=== PATIENT | female | born 1935 | race Caucasian/White ===

== ENCOUNTER 2018-08-22 12:31 | Emergency (ER) | payer MEDICARE ==
[~2018-08-22] VITALS: Ht 160 cm; Wt 67.0 kg
--- NOTE | 2018-08-22 12:48 | NUR ---
Pt is resting quietly on gurney, resp even and unlabored, waiting to be evaluated by provider
--- NOTE | 2018-08-22 13:33 | NUR ---
Dr Welsh plans to transfer pt to facility with OB for vaginal bleeding and prolapse, family at bedside is aware of plan
--- NOTE | 2018-08-22 14:04 | NUR ---
pt is sleeping, resp even and unlabored, family at bedside
--- NOTE | 2018-08-22 14:44 | NUR ---
Call placed to [facility] transfer center to check the status of transfer
--- NOTE | 2018-08-22 15:11 | NUR ---
DR LIZAMA INSERTED SANCHEZ CATHETER
--- NOTE | 2018-08-22 15:54 | NUR ---
pt continues to rest quietly, waiting for transport to [facility], emptied barrientos of 200ml of yellow, cloudy urine, family at bedside
[2018-08-22 16:45] VITALS: BP 203/83
--- NOTE | 2018-08-22 16:50 | NUR ---
ATTEMPTED REPORT TO [facility], NURSE SAID ROOM IS NOT CLEAN AND WILL CALL BACK FOR REPORT,
--- NOTE | 2018-08-22 16:57 | NUR ---
DR CORRAL AWARE OF VITAL SIGNS, REPORT GIVEN TO DOROTHY YANEZ AT [facility]
--- NOTE | 2018-08-22 17:00 | NUR ---
REPORT CHEMICAL OPERATOR
== END 2018-08-22 17:05 | disposition short-term general hospital (02) ==
LOC: ER 12:32
DX: R33.9 Retention of urine, unspecified (principal); N81.4 Uterovaginal prolapse, unspecified; N93.8 Other specified abnormal uterine and vaginal bleeding; R10.2 Pelvic and perineal pain
CPT/HCPCS: 51702; 99285

== ENCOUNTER 2019-04-19 09:34 | Emergency (ER) | payer MEDICARE ==
[~2019-04-19] VITALS: Ht 165.1 cm; Wt 63.6 kg
--- NOTE | 2019-04-19 10:59 | NUR ---
CONTACTED BRADY CARGO, ETA 35 MINS.
[2019-04-19 11:16] VITALS: BP 140/90
== END 2019-04-19 12:06 | disposition home or self-care (01) ==
LOC: ER 09:35
DX: S06.0X0A Concussion without loss of consciousness, initial encounter (principal); F03.90 Unspecified dementia, unspecified severity, without behavioral disturbance, psychotic disturbance, mood disturbance, and anxiety; I10 Essential (primary) hypertension; W18.39XA Other fall on same level, initial encounter; Y93.89 Activity, other specified; Y92.091 Bathroom in other non-institutional residence as the place of occurrence of the external cause; Y99.8 Other external cause status
CPT/HCPCS: 99284

== ENCOUNTER 2019-04-24 17:52 | Emergency (ER) | payer MEDICARE ==
[~2019-04-24] VITALS: Ht 157.5 cm; Wt 74.2 kg
[2019-04-24] MEDS ORDERED: phenylephrine 1% Nasal spray (extra-strength) 15 ML bottle **bronch room NS PRN (20:05)
[2019-04-24] MEDS ORDERED: oxymetazoline 15 ML nasal spray NS PRN (20:20)
[2019-04-24] MEDS ORDERED: HYDR-3965 PO (20:41)
[2019-04-24 22:30] VITALS: BP 140/69
== END 2019-04-24 22:30 | disposition home or self-care (01) ==
LOC: ER 17:52
DX: M54.5 Low back pain (principal); F03.90 Unspecified dementia, unspecified severity, without behavioral disturbance, psychotic disturbance, mood disturbance, and anxiety; I10 Essential (primary) hypertension; Z79.899 Other long term (current) drug therapy
CPT/HCPCS: 72100; 99284